=== PATIENT | male | born 1965 | race African-American/Black ===

== ENCOUNTER 2024-12-01 17:33 | Inpatient (IN) | payer OTHER, MEDICAID ==
[~2024-12-01] VITALS: Ht 188 cm; Wt 145.1 kg
[~2024-12-01 17:33] MED LIST: ETOMIDATE 2MG/ML 10ML VIAL IV ONE; LISI40TA21 PO; ROCURONIUM BROMIDE 10MG/ML VIAL 5ML IV ONE; SUCCINYLCHOLINE CHLORIDE 200MG/10ML IV ONE
[2024-12-01 18:05] LABS: BASOPHILS % 0.3 % (0.0-2.0); EOSINOPHILS % 0.0 % (0.0-5.0); HEMATOCRIT. 36.9 % (42.0-52.0); HEMOGLOBIN. 9.4 g/dL (14.0-18.0); LYMPHOCYTES % 14.4 % (20.0-50.0); MEAN PLATELET VOLUME 8.8 fl (7.4-10.4); MONOCYTES % 11.3 % (2.0-8.0); NEUTROPHILS % 74.0 % (40.0-76.0); PLATELET 169 x1000/uL (130-400); RED BLOOD CELL COUNT 5.10 mill/uL (4.7-6.1); RED CELL DISTRIBUTION WIDTH 21.3 % (11.6-14.6)
[2024-12-01 18:07] LABS: ADD RBC MORPHOLOGY YES
[2024-12-01 18:14] LABS: BG BASE EXCESS 2.9 mmol/L (-2.0-3.0); BG CARBOXYHEMOGLOBIN 1.2 % (0.5-1.5); BG DEOXYHEMOGLOBIN 1.1 % (0.0-5.0); BG FRACTION INSPIRED OXYGEN 30; BG HCO3 ACT 32.9 mmol/L (21.0-28.0); BG METHEMOGLOBIN 0.2 % (0.5-1.5); BG OXYGEN SATURATION 98.9 % (94.0-98.0); BG OXYHEMOGLOBIN 97.5 % (94.0-98.0); BG PCO2 88.1 mmHg (35.0-48.0); BG PH 7.190 (7.350-7.450); BG PO2 148.8 mmHg (83.0-108.0); BG SAMPLE SITE RIGHT RADIAL; BG TOTAL HEMOGLOBIN 10.4 g/dL (13.5-17.5); BG VENT MODE MASK - BIPAP; BG VENT RATE 20.0 set
[2024-12-01 18:20] LABS: CREATININE 2.5 mg/dL (0.6-1.3); UREA NITROGEN BLOOD 26 mg/dL (9-23)
[2024-12-01 18:22] LABS: ASPARTATE AMINOTRANSFERASE 123 IU/L (<34); BILIRUBIN DIRECT 0.2 mg/dL (<=3.0); BILIRUBIN TOTAL 0.6 mg/dL (0.1-1.0); PROTEIN TOTAL 7.8 g/dL (6.0-8.3)
[2024-12-01 18:27] LABS: PLATELET ESTIMATE NORMAL
[2024-12-01 18:33] VITALS: PULSE 97; RESP 22; O2SAT 96
[2024-12-01 18:41] LABS: TROPONIN I HIGH SENSITIVITY 300 ng/L (3.0-53)
[2024-12-01] MEDS: PROPOFOL 10MG/ML 100ML 100 ML IV STA (18:41)
[2024-12-01 18:59] LABS: ETHANOL BLOOD < 10 mg/dL (<10)
[2024-12-01] MEDS ORDERED: MIDAZOLAM 100MG/100ML PMX 100 ML IV PRN (19:00)
[2024-12-01] MEDS ORDERED: FENTANYL 2500MCG/250ML PMX 250 ML IV ONE (19:00)
[2024-12-01] MEDS: ROCURONIUM BROMIDE 10MG/ML VIAL 5ML IV ONE (19:05)
[2024-12-01] MEDS: MIDAZOLAM 100MG/100ML PMX 100 ML IV PRN (19:08)
[2024-12-01] MEDS: FENTANYL 2500MCG/250ML PMX 250 ML IV PRN (19:09)
[2024-12-01 19:28] LABS: INR 1.2
[2024-12-01 20:30] VITALS: PULSE 101; RESP 22; O2SAT 98
[2024-12-01] MEDS ORDERED: IPRATROPIUM/ALBUTEROL 0.5-3(2.5)MG/3ML NEB NEB PRN (21:30)
[2024-12-01] MEDS ORDERED: PIPERACILLIN/TAZO 3.375G/50ML 50 ML IV SCH (22:00)
[2024-12-01 22:05] VITALS: PULSE 106; RESP 22; O2SAT 97
[2024-12-01] MEDS: IOHEXOL-350 100 ML BOTTLE ONE (23:30)
[2024-12-02] VITALS (105 sets, daily range): BP systolic 95–173; BP diastolic 66–147; PULSE 74–162; RESP 18–25; TEMP 36.7–37.2; O2SAT 93–100
[2024-12-02] MEDS: DEXT 5%/0.45% NACL 1000ML 1,000 ML IV SCH (00:03)
[2024-12-02] MEDS: PANTOPRAZOLE SODIUM 40 MG/VIAL IV SCH ×2 (00:03→09:11)
[2024-12-02 01:25] LABS: BG BASE EXCESS 4.1 mmol/L (-2.0-3.0); BG CARBOXYHEMOGLOBIN 0.4 % (0.5-1.5); BG DEOXYHEMOGLOBIN 0.3 % (0.0-5.0); BG FRACTION INSPIRED OXYGEN 100; BG HCO3 ACT 27.6 mmol/L (21.0-28.0); BG METHEMOGLOBIN 0.0 % (0.5-1.5); BG OXYGEN SATURATION 99.7 % (94.0-98.0); BG OXYHEMOGLOBIN 99.3 % (94.0-98.0); BG PCO2 37.1 mmHg (35.0-48.0); BG PEEP (cmH2O) 5.0 cmH2O; BG PH 7.490 (7.350-7.450); BG PO2 235.2 mmHg (83.0-108.0); BG SAMPLE SITE RIGHT RADIAL; BG TIDAL VOLUME(mL) 500.0 mL; BG TOTAL HEMOGLOBIN 9.2 g/dL (13.5-17.5); BG VENT MODE VENT - AC; BG VENT RATE 22.0 set
[2024-12-02] MEDS ORDERED: PROPOFOL 10MG/ML 100ML 100 ML IV PRN (03:00)
[2024-12-02] MEDS: VANCOMYCIN 2GM PMX (XELLIA) 400 ML IV SCH (03:37)
[2024-12-02] MEDS: FUROSEMIDE 100MG/10ML VIAL IVP NR (04:12)
[2024-12-02] MEDS: AMLODIPINE 10MG TABLET PO NR (04:16)
[2024-12-02 06:08] LABS: HEMATOCRIT. 29.5 % (42.0-52.0); HEMOGLOBIN. 8.0 g/dL (14.0-18.0); MEAN PLATELET VOLUME 8.4 fl (7.4-10.4); RED BLOOD CELL COUNT 4.30 mill/uL (4.7-6.1); RED CELL DISTRIBUTION WIDTH 20.4 % (11.6-14.6)
[2024-12-02 06:23] LABS: FOLIC ACID (FOLATE) SERUM 13.43 ng/mL (>5.38); VITAMIN B12 SERUM 898 pg/mL (211-911)
[2024-12-02 06:29] LABS: TRIGLYCERIDE 100 mg/dL (0-150)
[2024-12-02 06:30] LABS: CREATININE 2.6 mg/dL (0.6-1.3); UREA NITROGEN BLOOD 41 mg/dL (9-23)
[2024-12-02 06:31] LABS: ASPARTATE AMINOTRANSFERASE 127 IU/L (<34); CREATINE KINASE MB FRACTION 8.7 ng/mL (0.5-3.6); LDL CHOLESTEROL 98 mg/dL (5-100)
[2024-12-02 06:32] LABS: BILIRUBIN DIRECT 0.2 mg/dL (<=3.0)
[2024-12-02 06:33] LABS: BILIRUBIN TOTAL 0.7 mg/dL (0.1-1.0); PROTEIN TOTAL 6.3 g/dL (6.0-8.3)
[2024-12-02 06:35] LABS: T4 FREE 0.89 ng/dL (0.89-1.76)
[2024-12-02 06:37] LABS: TROPONIN I HIGH SENSITIVITY 2533 ng/L (3.0-53)
[2024-12-02] MEDS: PIPERACILLIN/TAZO 3.375G/50ML 50 ML IV SCH (06:41)
[2024-12-02 08:54] LABS: BG BASE EXCESS 8.9 mmol/L (-2.0-3.0); BG CARBOXYHEMOGLOBIN 0.3 % (0.5-1.5); BG DEOXYHEMOGLOBIN 4.1 % (0.0-5.0); BG FRACTION INSPIRED OXYGEN 50; BG HCO3 ACT 34.1 mmol/L (21.0-28.0); BG METHEMOGLOBIN 0.3 % (0.5-1.5); BG OXYGEN SATURATION 95.9 % (94.0-98.0); BG OXYHEMOGLOBIN 95.3 % (94.0-98.0); BG PCO2 50.9 mmHg (35.0-48.0); BG PEEP (cmH2O) 5.0 cmH2O; BG PH 7.444 (7.350-7.450); BG PO2 79.4 mmHg (83.0-108.0); BG SAMPLE SITE RIGHT RADIAL; BG TIDAL VOLUME(mL) 500.0 mL; BG TOTAL HEMOGLOBIN 9.7 g/dL (13.5-17.5); BG VENT MODE VENT - AC; BG VENT RATE 22.0 set
[2024-12-02] MEDS ORDERED: FUROSEMIDE 40MG/4ML VIAL IVP SCH (09:00)
[2024-12-02] MEDS ORDERED: ENOXAPARIN 40MG/0.4ML SYR SUBCUT SCH (09:00)
[2024-12-02] MEDS ORDERED: PANTOPRAZOLE SODIUM 40 MG/VIAL IV SCH (09:00)
[2024-12-02 09:01] LABS: PLATELET 277 x1000/uL (130-400)
[2024-12-02 09:03] LABS: BAND% 8.0 % (1.0-6.0); LYMPHOCYTES % MANUAL 13.0 % (20.0-50.0); MONOCYTES % MANUAL 8.0 % (2.0-8.0); NEUTROPHILS % MANUAL 71.0 % (45.0-75.0); NUCLEATED RED BLOOD CELLS 1 /100 WBC; PLATELET ESTIMATE NORMAL
[2024-12-02] MEDS: AMLODIPINE 10MG TABLET PO SCH (09:11)
[2024-12-02] MEDS: MULTIVITAMINS,THER W-MINERALS TABLET PO SCH (09:12)
[2024-12-02] MEDS: ENOXAPARIN 150MG/ML SYR SUBCUT SCH (09:13)
[2024-12-02] MEDS: FERROUS SULFATE 325MG TABLET PO SCH (11:58)
[2024-12-02 12:30] LABS: CLARITY URINE CLEAR (CLEAR); COLOR URINE YELLOW (YELLOW); GLUCOSE URINE NEGATIVE (NEGATIVE); KETONES URINE NEGATIVE (NEGATIVE); LEUKOCYTE ESTERASE URINE NEGATIVE (NEGATIVE); NITRITE URINE NEGATIVE (NEGATIVE); OCCULT BLOOD URINE NEGATIVE (NEGATIVE); PH URINE 5.0 (4.5-8.0); PROTEIN URINE 2+ (NEGATIVE); SPECIFIC GRAVITY URINE 1.016 (1.005-1.030); UROBILINOGEN URINE 0.2 E.U./dL (0.2-1.0)
[2024-12-02 12:48] LABS: HYALINE CASTS URINE 0-5 /lpf
[2024-12-02 12:49] LABS: BACTERIA URINE 1+; RBC URINE NONE SEEN /hpf (0-2); WBC URINE 0-2 /hpf (0-2); YEAST URINE NONE SEEN
[2024-12-02 12:50] LABS: SQUAMOUS EPITHELIAL CELL URINE FEW /lpf (RARE/1+)
[2024-12-02 13:21] LABS: SODIUM URINE RANDOM 99.0 mEq/L
[2024-12-02 13:28] LABS: *AMPHETAMINES SCREEN URINE NEGATIVE (NEGATIVE); *BARBITURATES SCREEN URINE NEGATIVE (NEGATIVE); *BENZODIAZEPINES SCREEN URINE PRESUMPTIVE POSITIVE (NEGATIVE); *COCAINE SCREEN URINE NEGATIVE (NEGATIVE); CANNABINOID URINE SCREEN NEGATIVE (NEGATIVE); METHADONE URINE SCREEN NEGATIVE (NEGATIVE); OPIATES URINE SCREEN NEGATIVE (NEGATIVE); PHENCYCLIDINE URINE SCREEN NEGATIVE (NEGATIVE)
[2024-12-02 13:29] LABS: CREATININE URINE RANDOM 85.2 mg/dL; ECSTASY MDMA SCREEN URINE NEGATIVE (NEGATIVE)
[2024-12-02] MEDS: CLONIDINE 0.1MG TABLET PO PRN (16:07)
[2024-12-02] MEDS: INSULIN LISPRO 100 UNITS/ML SUBCUT SCH (17:00)
[2024-12-02] MEDS: BLOOD SUGAR DIAGNOSTIC STRIP TEST SCH ×2 (17:26)
[2024-12-02 19:29] LABS: PHOSPHORUS 2.2 mg/dL (2.5-4.9)
[2024-12-02 19:35] LABS: TROPONIN I HIGH SENSITIVITY 2306 ng/L (3.0-53)
[2024-12-03] VITALS (97 sets, daily range): BP systolic 109–150; BP diastolic 64–106; PULSE 78–94; RESP 13–24; TEMP 36.8–37; O2SAT 94–100
[2024-12-03 01:25] LABS: CREATINE KINASE MB FRACTION 3.2 ng/mL (0.5-3.6)
[2024-12-03 01:44] LABS: TROPONIN I HIGH SENSITIVITY 1983.0 ng/L (3.0-53)
[2024-12-03 06:12] LABS: BASOPHILS % 0.4 % (0.0-2.0); EOSINOPHILS % 2.6 % (0.0-5.0); HEMATOCRIT. 29.6 % (42.0-52.0); HEMOGLOBIN. 8.1 g/dL (14.0-18.0); LYMPHOCYTES % 9.7 % (20.0-50.0); MEAN PLATELET VOLUME 8.8 fl (7.4-10.4); MONOCYTES % 12.4 % (2.0-8.0); NEUTROPHILS % 74.9 % (40.0-76.0); PLATELET 253 x1000/uL (130-400); RED BLOOD CELL COUNT 4.34 mill/uL (4.7-6.1); RED CELL DISTRIBUTION WIDTH 20.5 % (11.6-14.6)
[2024-12-03 06:16] LABS: CREATININE 2.1 mg/dL (0.6-1.3); TRIGLYCERIDE 113 mg/dL (0-150); UREA NITROGEN BLOOD 38 mg/dL (9-23)
[2024-12-03 06:18] LABS: PHOSPHORUS 3.0 mg/dL (2.5-4.9)
[2024-12-03 08:09] LABS: BG BASE EXCESS 6.1 mmol/L (-2.0-3.0); BG CARBOXYHEMOGLOBIN 1.0 % (0.5-1.5); BG DEOXYHEMOGLOBIN 2.9 % (0.0-5.0); BG FRACTION INSPIRED OXYGEN 40; BG HCO3 ACT 31.1 mmol/L (21.0-28.0); BG METHEMOGLOBIN 0.0 % (0.5-1.5); BG OXYGEN SATURATION 97.1 % (94.0-98.0); BG OXYHEMOGLOBIN 96.1 % (94.0-98.0); BG PCO2 47.2 mmHg (35.0-48.0); BG PEEP (cmH2O) 5.0 cmH2O; BG PH 7.436 (7.350-7.450); BG PO2 91.4 mmHg (83.0-108.0); BG SAMPLE SITE RIGHT RADIAL; BG TIDAL VOLUME(mL) 500.0 mL; BG TOTAL HEMOGLOBIN 9.1 g/dL (13.5-17.5); BG VENT MODE VENT - AC; BG VENT RATE 18.0 set
[2024-12-03] MEDS: SODIUM CHLORIDE 0.9% 1,000 ML IV SCH (08:25)
[2024-12-03] MEDS: VANCOMYCIN 1.5GM PMX (XELLIA) 300 ML IV SCH (13:26)
[2024-12-03] MEDS: ASPIRIN 81MG TABLET PO SCH (19:46)
[2024-12-03] MEDS: ATORVASTATIN CALCIUM 40MG TABLET PO SCH (21:46)
[2024-12-04] VITALS (104 sets, daily range): BP systolic 111–181; BP diastolic 69–128; PULSE 76–110; RESP 12–32; TEMP 36.9–37.7; O2SAT 89–100
[2024-12-04 05:37] LABS: UREA NITROGEN BLOOD 28 mg/dL (9-23)
[2024-12-04 05:38] LABS: ASPARTATE AMINOTRANSFERASE 39 IU/L (<34)
[2024-12-04 05:39] LABS: BILIRUBIN DIRECT 0.2 mg/dL (<=3.0); BILIRUBIN TOTAL 0.6 mg/dL (0.1-1.0); PHOSPHORUS 2.9 mg/dL (2.5-4.9); PROTEIN TOTAL 6.0 g/dL (6.0-8.3)
[2024-12-04 05:50] LABS: CREATININE 1.4 mg/dL (0.6-1.3)
[2024-12-04 07:13] LABS: BASOPHILS % 0.7 % (0.0-2.0); EOSINOPHILS % 3.7 % (0.0-5.0); HEMATOCRIT. 29.0 % (42.0-52.0); HEMOGLOBIN. 7.8 g/dL (14.0-18.0); LYMPHOCYTES % 13.9 % (20.0-50.0); MEAN PLATELET VOLUME 8.9 fl (7.4-10.4); MONOCYTES % 12.5 % (2.0-8.0); NEUTROPHILS % 69.2 % (40.0-76.0); PLATELET 247 x1000/uL (130-400); RED BLOOD CELL COUNT 4.18 mill/uL (4.7-6.1); RED CELL DISTRIBUTION WIDTH 21.1 % (11.6-14.6)
[2024-12-04] MEDS: SODIUM CHLORIDE 0.45% 1,000 ML IV SCH (15:34)
[2024-12-04] MEDS: SUCRALFATE 1G TABLET PO SCH (18:34)
[2024-12-04] MEDS: HYDRALAZINE 20MG/ML VIAL IV PRN (18:35)
[2024-12-04] MEDS: DEXTROSE 50% WATER 50ML SYRINGE IV PRN (20:14)
[2024-12-05] VITALS (92 sets, daily range): BP systolic 123–180; BP diastolic 60–139; PULSE 72–106; RESP 11–30; TEMP 37.1–37.9; O2SAT 93–98
[2024-12-05 05:49] LABS: BASOPHILS % 0.2 % (0.0-2.0); EOSINOPHILS % 2.5 % (0.0-5.0); HEMATOCRIT. 29.6 % (42.0-52.0); HEMOGLOBIN. 8.0 g/dL (14.0-18.0); LYMPHOCYTES % 11.1 % (20.0-50.0); MEAN PLATELET VOLUME 8.8 fl (7.4-10.4); MONOCYTES % 14.4 % (2.0-8.0); NEUTROPHILS % 71.8 % (40.0-76.0); PLATELET 257 x1000/uL (130-400); RED BLOOD CELL COUNT 4.24 mill/uL (4.7-6.1); RED CELL DISTRIBUTION WIDTH 21.2 % (11.6-14.6)
[2024-12-05 06:05] LABS: CREATININE 1.2 mg/dL (0.6-1.3); UREA NITROGEN BLOOD 18 mg/dL (9-23)
[2024-12-05 06:07] LABS: PHOSPHORUS 2.8 mg/dL (2.5-4.9)
[2024-12-05] MEDS ORDERED: AMLODIPINE 5MG TABLET PO SCH (10:30)
[2024-12-05 10:34] LABS: BG BASE EXCESS 7.3 mmol/L (-2.0-3.0); BG CARBOXYHEMOGLOBIN 1.7 % (0.5-1.5); BG DEOXYHEMOGLOBIN 4.3 % (0.0-5.0); BG FRACTION INSPIRED OXYGEN 40; BG HCO3 ACT 35.2 mmol/L (21.0-28.0); BG METHEMOGLOBIN 0.2 % (0.5-1.5); BG OXYGEN SATURATION 95.6 % (94.0-98.0); BG OXYHEMOGLOBIN 93.8 % (94.0-98.0); BG PCO2 73.4 mmHg (35.0-48.0); BG PEEP (cmH2O) 5.0 cmH2O; BG PH 7.299 (7.350-7.450); BG PO2 82.3 mmHg (83.0-108.0); BG SAMPLE SITE RIGHT RADIAL; BG TIDAL VOLUME(mL) 500.0 mL; BG TOTAL HEMOGLOBIN 9.1 g/dL (13.5-17.5); BG TOTAL RESPIRATORY RATE 13 b/min; BG VENT MODE VENT - SIMV; BG VENT RATE 12.0 set
[2024-12-05] MEDS: DEXT 5%/0.2% NACL 1,000 ML IV SCH (10:39)
[2024-12-05 16:12] LABS: TROPONIN I HIGH SENSITIVITY 611 ng/L (3.0-53)
[2024-12-05] MEDS: DOCUSATE SODIUM SUGAR FREE 100MG/10ML UDC NG SCH (18:59)
[2024-12-05 19:08] LABS: TROPONIN I HIGH SENSITIVITY 548 ng/L (3.0-53)
[2024-12-05] MEDS: DEXMEDETOMIDINE 250 ML IV PRN (20:45)
[2024-12-05] MEDS: CLONIDINE 0.1MG TABLET PO SCH (21:12)
[2024-12-06] VITALS (106 sets, daily range): BP systolic 101–181; BP diastolic 66–127; PULSE 58–85; RESP 0–22; TEMP 36.3–37.6; O2SAT 93–100
[2024-12-06 05:58] LABS: BASOPHILS % 0.5 % (0.0-2.0); EOSINOPHILS % 4.2 % (0.0-5.0); HEMATOCRIT. 28.8 % (42.0-52.0); HEMOGLOBIN. 7.8 g/dL (14.0-18.0); LYMPHOCYTES % 12.3 % (20.0-50.0); MEAN PLATELET VOLUME 8.8 fl (7.4-10.4); MONOCYTES % 14.4 % (2.0-8.0); NEUTROPHILS % 68.6 % (40.0-76.0); PLATELET 261 x1000/uL (130-400); RED BLOOD CELL COUNT 4.13 mill/uL (4.7-6.1); RED CELL DISTRIBUTION WIDTH 21.2 % (11.6-14.6)
[2024-12-06 06:26] LABS: CREATININE 1.1 mg/dL (0.6-1.3)
[2024-12-06 06:28] LABS: UREA NITROGEN BLOOD 15 mg/dL (9-23)
[2024-12-06 06:29] LABS: TROPONIN I HIGH SENSITIVITY 444 ng/L (3.0-53)
[2024-12-06 06:30] LABS: PHOSPHORUS 1.6 mg/dL (2.5-4.9)
[2024-12-06] MEDS: POTASSIUM PHOSPHATE 20 MMOL in DEXT 5% WATER 243.3333 ML IV SCH (08:52)
[2024-12-06] MEDS: AMLODIPINE 5MG TABLET PO SCH (08:53)
[2024-12-06] MEDS ORDERED: POTASSIUM PHOSPHATE 15 MMOL in DEXT 5% WATER 245 ML IV NR (11:00)
[2024-12-06 11:58] LABS: BG BASE EXCESS 7.8 mmol/L (-2.0-3.0); BG CARBOXYHEMOGLOBIN 1.8 % (0.5-1.5); BG DEOXYHEMOGLOBIN 3.4 % (0.0-5.0); BG FRACTION INSPIRED OXYGEN 40; BG HCO3 ACT 34.2 mmol/L (21.0-28.0); BG METHEMOGLOBIN 0.2 % (0.5-1.5); BG OXYGEN SATURATION 96.5 % (94.0-98.0); BG OXYHEMOGLOBIN 94.6 % (94.0-98.0); BG PCO2 59.2 mmHg (35.0-48.0); BG PEEP (cmH2O) 5.0 cmH2O; BG PH 7.380 (7.350-7.450); BG PO2 83.0 mmHg (83.0-108.0); BG SAMPLE SITE RIGHT RADIAL; BG TIDAL VOLUME(mL) 500.0 mL; BG TOTAL HEMOGLOBIN 9.4 g/dL (13.5-17.5); BG VENT MODE VENT - SIMV; BG VENT RATE 15.0 set
[2024-12-06] MEDS ORDERED: HEPARIN 1000 UNITS/ML 10ML ONE (12:28)
[2024-12-06] MEDS ORDERED: LIDOCAINE HCL 1% 20ML VIAL ONE (12:29)
[2024-12-06] MEDS ORDERED: IODIXANOL 320MG/ML 100 ML BOTTLE IV ONE (12:29)
[2024-12-06] MEDS ORDERED: VERAPAMIL HCL 2.5 MG/1 ML 2ML VIAL IV ONE (12:34)
[2024-12-06] MEDS ORDERED: DIPHENHYDRAMINE 50MG/ML VIAL ONE (13:12)
[2024-12-06] MEDS ORDERED: MIDAZOLAM HCL 2 MG/2 ML VIAL ONE (13:13)
[2024-12-06] MEDS ORDERED: FENTANYL CITRATE/PF 50MCG/ML 2ML VIAL ONE (13:13)
[2024-12-06 13:21] LABS: TROPONIN I HIGH SENSITIVITY 330 ng/L (3.0-53)
[2024-12-06] MEDS ORDERED: HYDRALAZINE 20MG/ML VIAL ONE (13:21)
[2024-12-06] MEDS ORDERED: ACETAMINOPHEN 325MG TABLET PO PRN (14:00)
[2024-12-06] MEDS ORDERED: ATROPINE SULFATE 1MG/10ML SYR IV PRN (14:00)
[2024-12-06] MEDS: DOCUSATE SODIUM SUGAR FREE 100MG/10ML UDC NG SCH (16:04)
[2024-12-06 19:07] LABS: BG BASE EXCESS 8.2 mmol/L (-2.0-3.0); BG CARBOXYHEMOGLOBIN 1.1 % (0.5-1.5); BG DEOXYHEMOGLOBIN 2.6 % (0.0-5.0); BG FRACTION INSPIRED OXYGEN 40; BG HCO3 ACT 35.0 mmol/L (21.0-28.0); BG METHEMOGLOBIN 0.2 % (0.5-1.5); BG OXYGEN SATURATION 97.4 % (94.0-98.0); BG OXYHEMOGLOBIN 96.1 % (94.0-98.0); BG PCO2 63.0 mmHg (35.0-48.0); BG PEEP (cmH2O) 8.0 cmH2O; BG PH 7.363 (7.350-7.450); BG PO2 96.5 mmHg (83.0-108.0); BG SAMPLE SITE RIGHT RADIAL; BG TOTAL HEMOGLOBIN 9.2 g/dL (13.5-17.5); BG VENT MODE VENT - CPAP
[2024-12-06 21:09] LABS: CREATININE 1.0 mg/dL (0.6-1.3); UREA NITROGEN BLOOD 16 mg/dL (9-23)
[2024-12-06 21:21] LABS: TROPONIN I HIGH SENSITIVITY 278 ng/L (3.0-53)
[2024-12-06] MEDS ORDERED: NALOXONE HCL 0.4MG/ML VIAL IV PRN (22:00)
[2024-12-07] VITALS (72 sets, daily range): BP systolic 127–227; BP diastolic 66–111; PULSE 79–115; RESP 6–29; TEMP 36.8–37.1; O2SAT 90–99
[2024-12-07] MEDS: MORPHINE SULFATE 4 MG/ML INJ (FOR IV/IM USE) IV PRN (03:36)
[2024-12-07 06:16] LABS: BASOPHILS % 0.6 % (0.0-2.0); EOSINOPHILS % 4.8 % (0.0-5.0); HEMATOCRIT. 30.5 % (42.0-52.0); HEMOGLOBIN. 8.3 g/dL (14.0-18.0); LYMPHOCYTES % 9.0 % (20.0-50.0); MEAN PLATELET VOLUME 8.9 fl (7.4-10.4); MONOCYTES % 12.2 % (2.0-8.0); NEUTROPHILS % 73.4 % (40.0-76.0); PLATELET 281 x1000/uL (130-400); RED BLOOD CELL COUNT 4.44 mill/uL (4.7-6.1); RED CELL DISTRIBUTION WIDTH 21.5 % (11.6-14.6)
[2024-12-07 06:27] LABS: CREATININE 1.0 mg/dL (0.6-1.3)
[2024-12-07 06:28] LABS: UREA NITROGEN BLOOD 14 mg/dL (9-23)
[2024-12-07 06:30] LABS: PHOSPHORUS 2.0 mg/dL (2.5-4.9)
[2024-12-07] MEDS: FUROSEMIDE 40MG/4ML VIAL IVP NR (09:24)
[2024-12-07] MEDS: POTASSIUM PHOSPHATE 15 MMOL in DEXT 5% WATER 245 ML IV SCH (09:29)
[2024-12-07] MEDS: LACTULOSE ENEMA 1,000ML BOTTLE PR NR (13:44)
[2024-12-07] MEDS: MELATONIN 3MG TABLET PO SCH (21:15)
[2024-12-08] VITALS (24 sets, daily range): BP systolic 149–219; BP diastolic 80–111; PULSE 89–121; RESP 18–30; TEMP 36.6–37; O2SAT 85–99
[2024-12-08 09:14] LABS: BASOPHILS % 0.7 % (0.0-2.0); EOSINOPHILS % 4.3 % (0.0-5.0); HEMATOCRIT. 30.1 % (42.0-52.0); HEMOGLOBIN. 8.2 g/dL (14.0-18.0); LYMPHOCYTES % 10.4 % (20.0-50.0); MEAN PLATELET VOLUME 8.8 fl (7.4-10.4); MONOCYTES % 13.3 % (2.0-8.0); NEUTROPHILS % 71.3 % (40.0-76.0); PLATELET 261 x1000/uL (130-400); RED BLOOD CELL COUNT 4.44 mill/uL (4.7-6.1); RED CELL DISTRIBUTION WIDTH 21.2 % (11.6-14.6)
[2024-12-08 09:32] LABS: CREATININE 1.1 mg/dL (0.6-1.3); UREA NITROGEN BLOOD 13 mg/dL (9-23)
[2024-12-08 09:34] LABS: PHOSPHORUS 2.4 mg/dL (2.5-4.9)
[2024-12-08] MEDS: NIFEDIPINE XL 30MG TAB PO SCH (11:29)
[2024-12-08] MEDS: POTASSIUM PHOSPHATE 15 MMOL in DEXT 5% WATER 245 ML IV ONE (11:37)
[2024-12-08] MEDS: LABETALOL 5MG/ML 4ML INJ IV NR (12:27)
[2024-12-08] MEDS: MAGNESIUM 4 G PREMIX 100 ML IV ONE (12:40)
[2024-12-08 12:56] LABS: BG BASE EXCESS 9.0 mmol/L (-2.0-3.0); BG CARBOXYHEMOGLOBIN 0.5 % (0.5-1.5); BG DEOXYHEMOGLOBIN 3.3 % (0.0-5.0); BG FLOW(L/min) 6.00 L/min; BG FRACTION INSPIRED OXYGEN 44; BG HCO3 ACT 34.3 mmol/L (21.0-28.0); BG METHEMOGLOBIN 0.3 % (0.5-1.5); BG OXYGEN SATURATION 96.7 % (94.0-98.0); BG OXYHEMOGLOBIN 95.9 % (94.0-98.0); BG PCO2 51.0 mmHg (35.0-48.0); BG PH 7.445 (7.350-7.450); BG PO2 77.4 mmHg (83.0-108.0); BG SAMPLE SITE RIGHT RADIAL; BG TOTAL HEMOGLOBIN 9.4 g/dL (13.5-17.5); BG VENT MODE NASAL CANNULA
[2024-12-08] MEDS: HYDRALAZINE HCL 25MG TABLET PO SCH (13:54)
[2024-12-08] MEDS: NIFEDIPINE XL 60MG TAB PO SCH (17:17)
[2024-12-08 17:21] LABS: BG BASE EXCESS 9.3 mmol/L (-2.0-3.0); BG CARBOXYHEMOGLOBIN 1.0 % (0.5-1.5); BG DEOXYHEMOGLOBIN 24.1 % (0.0-5.0); BG FRACTION INSPIRED OXYGEN 21; BG HCO3 ACT 33.9 mmol/L (21.0-28.0); BG METHEMOGLOBIN 0.3 % (0.5-1.5); BG OXYGEN SATURATION 75.6 % (94.0-98.0); BG OXYHEMOGLOBIN 74.6 % (94.0-98.0); BG PCO2 47.0 mmHg (35.0-48.0); BG PH 7.476 (7.350-7.450); BG PO2 38.3 mmHg (83.0-108.0); BG SAMPLE SITE RIGHT RADIAL; BG TOTAL HEMOGLOBIN 9.9 g/dL (13.5-17.5); BG VENT MODE ROOM AIR
[2024-12-08] MEDS: CLONIDINE 0.1MG TABLET PO SCH (18:37)
[2024-12-09] VITALS (8 sets, daily range): BP systolic 150–198; BP diastolic 78–104; PULSE 105–110; RESP 21–32; TEMP 36.7–37.6; O2SAT 90–98
[2024-12-09] MEDS: NIFEDIPINE XL 60MG TAB PO SCH (09:57)
[2024-12-09] MEDS: FUROSEMIDE 40MG/4ML VIAL IVP NR (09:57)
[2024-12-09 10:27] LABS: MEAN PLATELET VOLUME 8.6 fl (7.4-10.4); PLATELET 284 x1000/uL (130-400); RED BLOOD CELL COUNT 5.11 mill/uL (4.7-6.1); RED CELL DISTRIBUTION WIDTH 21.3 % (11.6-14.6)
[2024-12-09 10:37] LABS: CREATININE 1.0 mg/dL (0.6-1.3)
[2024-12-09 10:38] LABS: UREA NITROGEN BLOOD 11 mg/dL (9-23)
[2024-12-09 10:40] LABS: PHOSPHORUS 2.3 mg/dL (2.5-4.9)
[2024-12-09 11:00] LABS: HEMATOCRIT. 34.8 % (42.0-52.0); HEMOGLOBIN. 9.8 g/dL (14.0-18.0)
[2024-12-09 13:31] LABS: BAND% 2.0 % (1.0-6.0); EOSINOPHILS % MANUAL 1.0 % (0.0-5.0); LYMPHOCYTES % MANUAL 5.0 % (20.0-50.0); MONOCYTES % MANUAL 7.0 % (2.0-8.0); NEUTROPHILS % MANUAL 85.0 % (45.0-75.0); PLATELET ESTIMATE NORMAL
[2024-12-09 13:56] LABS: BG BASE EXCESS 9.0 mmol/L (-2.0-3.0); BG CARBOXYHEMOGLOBIN 0.7 % (0.5-1.5); BG DEOXYHEMOGLOBIN 10.4 % (0.0-5.0); BG FLOW(L/min) 4.00 L/min; BG FRACTION INSPIRED OXYGEN 36; BG HCO3 ACT 33.7 mmol/L (21.0-28.0); BG METHEMOGLOBIN 0.0 % (0.5-1.5); BG OXYGEN SATURATION 89.5 % (94.0-98.0); BG OXYHEMOGLOBIN 88.9 % (94.0-98.0); BG PCO2 47.4 mmHg (35.0-48.0); BG PH 7.470 (7.350-7.450); BG PO2 54.7 mmHg (83.0-108.0); BG SAMPLE SITE RIGHT RADIAL; BG TOTAL HEMOGLOBIN 10.3 g/dL (13.5-17.5); BG VENT MODE NASAL CANNULA
[2024-12-09] MEDS: CLONIDINE 0.2MG TABLET PO SCH (16:47)
[2024-12-09] MEDS: POTASSIUM PHOSPHATE 15 MMOL in DEXT 5% WATER 245 ML IV NR (16:50)
[2024-12-10] VITALS (9 sets, daily range): BP systolic 114–143; BP diastolic 77–91; PULSE 85–100; RESP 16–25; TEMP 36.4–37.5; O2SAT 91–97
[2024-12-10 07:26] LABS: CREATININE 1.3 mg/dL (0.6-1.3)
[2024-12-10 07:27] LABS: UREA NITROGEN BLOOD 10 mg/dL (9-23)
[2024-12-10 07:29] LABS: PHOSPHORUS 3.7 mg/dL (2.5-4.9)
[2024-12-10 10:51] LABS: BASOPHILS % 1.0 % (0.0-2.0); EOSINOPHILS % 3.8 % (0.0-5.0); HEMATOCRIT. 31.8 % (42.0-52.0); HEMOGLOBIN. 8.9 g/dL (14.0-18.0); LYMPHOCYTES % 11.8 % (20.0-50.0); MEAN PLATELET VOLUME 8.3 fl (7.4-10.4); MONOCYTES % 9.8 % (2.0-8.0); NEUTROPHILS % 73.6 % (40.0-76.0); PLATELET 267 x1000/uL (130-400); RED BLOOD CELL COUNT 4.70 mill/uL (4.7-6.1); RED CELL DISTRIBUTION WIDTH 21.1 % (11.6-14.6)
[2024-12-10] MEDS: FAMOTIDINE 20MG/2ML VIAL IV SCH (11:00)
[2024-12-10] MEDS: BUDESONIDE 0.5MG/2ML NEB HHN SCH (13:33)
[2024-12-10] MEDS: FUROSEMIDE 40MG/4ML VIAL IVP NR (14:19)
[2024-12-10] MEDS: CARVEDILOL 3.125 MG TABLET PO SCH (22:23)
[2024-12-10] MEDS: ENOXAPARIN 40MG/0.4ML SYR SUBCUT SCH (22:25)
[2024-12-11] VITALS (7 sets, daily range): BP systolic 127–157; BP diastolic 78–95; PULSE 92–102; RESP 16–22; TEMP 36.7–37.1; O2SAT 92–98
[2024-12-11] MEDS: EMPAGLIFLOZIN 10MG TABLET PO SCH (09:56)
[2024-12-11] MEDS: LOSARTAN 50 MG TABLET PO SCH (09:56)
[2024-12-11] MEDS: FUROSEMIDE 40MG TABLET PO SCH (12:12)
[2024-12-12] VITALS (10 sets, daily range): BP systolic 116–155; BP diastolic 72–95; PULSE 75–117; RESP 17–28; TEMP 36.6–38.8; O2SAT 90–98
[2024-12-12] MEDS: DOCUSATE SODIUM 100MG CAPSULE PO PRN (08:24)
[2024-12-12] MEDS: METOPROLOL TARTRATE 50MG TABLET PO SCH (10:01)
[2024-12-12 11:59] LABS: BG BASE EXCESS 7.2 mmol/L (-2.0-3.0); BG CARBOXYHEMOGLOBIN 1.7 % (0.5-1.5); BG DEOXYHEMOGLOBIN 9.8 % (0.0-5.0); BG FLOW(L/min) 5.00 L/min; BG FRACTION INSPIRED OXYGEN 40; BG HCO3 ACT 33.2 mmol/L (21.0-28.0); BG METHEMOGLOBIN 0.2 % (0.5-1.5); BG OXYGEN SATURATION 90.0 % (94.0-98.0); BG OXYHEMOGLOBIN 88.3 % (94.0-98.0); BG PCO2 55.0 mmHg (35.0-48.0); BG PH 7.399 (7.350-7.450); BG PO2 57.8 mmHg (83.0-108.0); BG SAMPLE SITE LEFT RADIAL; BG TOTAL HEMOGLOBIN 10.3 g/dL (13.5-17.5); BG VENT MODE NASAL CANNULA
[2024-12-12] MEDS: ACETAMINOPHEN 325MG TABLET PO PRN (14:04)
[2024-12-12] MEDS: CEFEPIME 2GM/100ML 100 ML IV SCH (16:25)
[2024-12-12] MEDS: SODIUM CHLORIDE 0.9% 1,000 ML IV ONE (21:38)
[2024-12-12 22:41] LABS: PLATELET 231 x1000/uL (130-400); RED BLOOD CELL COUNT 4.88 mill/uL (4.7-6.1); RED CELL DISTRIBUTION WIDTH 22.3 % (11.6-14.6)
[2024-12-12 22:53] LABS: UREA NITROGEN BLOOD 27.0 mg/dL (9-23)
[2024-12-12 23:03] LABS: CREATININE 2.2 mg/dL (0.6-1.3)
[2024-12-13] VITALS (35 sets, daily range): BP systolic 68–133; BP diastolic 49–76; PULSE 74–110; RESP 14–28; TEMP 36.2–37.8; O2SAT 92–98
[2024-12-13 05:02] LABS: CLARITY URINE TURBID (CLEAR); COLOR URINE DARK YELLOW (YELLOW); GLUCOSE URINE 2+ (NEGATIVE); KETONES URINE TRACE (NEGATIVE); LEUKOCYTE ESTERASE URINE TRACE (NEGATIVE); NITRITE URINE POSITIVE (NEGATIVE); OCCULT BLOOD URINE 1+ (NEGATIVE); PH URINE 5.0 (4.5-8.0); PROTEIN URINE 2+ (NEGATIVE); SPECIFIC GRAVITY URINE 1.024 (1.005-1.030); UROBILINOGEN URINE 1.0 E.U./dL (0.2-1.0)
[2024-12-13 05:33] LABS: WBC URINE 0-2 /hpf (0-2)
[2024-12-13 05:35] LABS: RBC URINE 0-2 /hpf (0-2)
[2024-12-13 05:36] LABS: SQUAMOUS EPITHELIAL CELL URINE FEW /lpf (RARE/1+)
[2024-12-13 05:38] LABS: AMORPHOUS SEDIMENT URINE 1+ /lpf; BACTERIA URINE 1+
[2024-12-13] MEDS: SODIUM CHLORIDE 0.9% 1,000 ML IV SCH (08:23)
[2024-12-13] MEDS ORDERED: AZITHROMYCIN 500MG/250ML 250 ML IV SCH (08:30)
[2024-12-13] MEDS: AZITHROMYCIN 500MG/250ML 250 ML IV SCH (10:39)
[2024-12-13 12:23] LABS: BG BASE EXCESS 4.3 mmol/L (-2.0-3.0); BG CARBOXYHEMOGLOBIN 1.3 % (0.5-1.5); BG DEOXYHEMOGLOBIN 5.5 % (0.0-5.0); BG FRACTION INSPIRED OXYGEN 40; BG HCO3 ACT 30.1 mmol/L (21.0-28.0); BG METHEMOGLOBIN 0.1 % (0.5-1.5); BG OXYGEN SATURATION 94.4 % (94.0-98.0); BG OXYHEMOGLOBIN 93.1 % (94.0-98.0); BG PCO2 51.3 mmHg (35.0-48.0); BG PH 7.386 (7.350-7.450); BG PO2 70.4 mmHg (83.0-108.0); BG SAMPLE SITE LEFT RADIAL; BG TOTAL HEMOGLOBIN 9.5 g/dL (13.5-17.5); BG TOTAL RESPIRATORY RATE 27 b/min; BG VENT MODE MASK - BIPAP; BG VENT RATE 18.0 set
[2024-12-13] MEDS ORDERED: NOREPINEPHRINE 8MG/250ML PMX 242 ML IV PRN (14:00)
[2024-12-13] MEDS: SODIUM CHLORIDE 0.9% 3,000 ML IV ONE (14:09)
[2024-12-13] MEDS: LEVOFLOXACIN 500MG TABLET PO NR (14:15)
[2024-12-13 14:26] LABS: BG BASE EXCESS 3.9 mmol/L (-2.0-3.0); BG CARBOXYHEMOGLOBIN 1.1 % (0.5-1.5); BG DEOXYHEMOGLOBIN 1.4 % (0.0-5.0); BG FRACTION INSPIRED OXYGEN 60; BG HCO3 ACT 30.3 mmol/L (21.0-28.0); BG METHEMOGLOBIN 0.1 % (0.5-1.5); BG OXYGEN SATURATION 98.6 % (94.0-98.0); BG OXYHEMOGLOBIN 97.4 % (94.0-98.0); BG PCO2 55.6 mmHg (35.0-48.0); BG PH 7.354 (7.350-7.450); BG PO2 109.1 mmHg (83.0-108.0); BG SAMPLE SITE LEFT RADIAL; BG TOTAL HEMOGLOBIN 9.5 g/dL (13.5-17.5); BG TOTAL RESPIRATORY RATE 23 b/min; BG VENT MODE MASK - BIPAP; BG VENT RATE 18.0 set
[2024-12-13] MEDS: NOREPINEPHRINE 8MG/250ML PMX 250 ML IV PRN (14:35)
[2024-12-13] MEDS: SODIUM CHLORIDE 0.9% 2,000 ML IV ONE (16:22)
[2024-12-13 16:56] LABS: BG DEOXYHEMOGLOBIN 3.7 % (0.0-5.0)
[2024-12-13] MEDS: DIGOXIN 500MCG/2ML AMP IV NR (17:07)
[2024-12-13] MEDS: VANCOMYCIN 1GM/200ML PMX (BAXTER) IV SCH (17:19)
[2024-12-13] MEDS: ENOXAPARIN 150MG/ML SYR SUBCUT SCH (18:48)
[2024-12-13] MEDS: MEROPENEM 1,000 MG in SODIUM CHLORIDE 0.9% 100 ML IV SCH (18:49)
[2024-12-13 20:19] LABS: PLATELET 208 x1000/uL (130-400); RED BLOOD CELL COUNT 4.39 mill/uL (4.7-6.1); RED CELL DISTRIBUTION WIDTH 22.4 % (11.6-14.6)
[2024-12-13 20:41] LABS: LACTATE DEHYDROGENASE 233 IU/L (120-246); UREA NITROGEN BLOOD 47 mg/dL (9-23)
[2024-12-13 20:43] LABS: ASPARTATE AMINOTRANSFERASE 36 IU/L (<34); BILIRUBIN TOTAL 0.9 mg/dL (0.1-1.0); PHOSPHORUS 4.7 mg/dL (2.5-4.9); PROTEIN TOTAL 6.5 g/dL (6.0-8.3)
[2024-12-13 20:44] LABS: CREATININE 3.4 mg/dL (0.6-1.3)
[2024-12-13 20:46] LABS: TROPONIN I HIGH SENSITIVITY 63 ng/L (3.0-53)
[2024-12-14] VITALS (85 sets, daily range): BP systolic 101–167; BP diastolic 47–120; PULSE 72–92; RESP 10–30; TEMP 36.7–37.4; O2SAT 87–100
[2024-12-14 05:49] LABS: HEMATOCRIT. 31.1 % (42.0-52.0); HEMOGLOBIN. 8.0 g/dL (14.0-18.0); MEAN PLATELET VOLUME 9.0 fl (7.4-10.4); PLATELET 221 x1000/uL (130-400); RED BLOOD CELL COUNT 4.24 mill/uL (4.7-6.1); RED CELL DISTRIBUTION WIDTH 22.2 % (11.6-14.6)
[2024-12-14 05:54] LABS: INR 1.2
[2024-12-14 06:10] LABS: CREATININE 4.1 mg/dL (0.6-1.3)
[2024-12-14 06:11] LABS: UREA NITROGEN BLOOD 56 mg/dL (9-23)
[2024-12-14 06:13] LABS: PHOSPHORUS 6.5 mg/dL (2.5-4.9)
[2024-12-14 09:00] LABS: BG BASE EXCESS 0.1 mmol/L (-2.0-3.0); BG CARBOXYHEMOGLOBIN 1.8 % (0.5-1.5); BG DEOXYHEMOGLOBIN 4.4 % (0.0-5.0); BG FRACTION INSPIRED OXYGEN 50; BG HCO3 ACT 29.1 mmol/L (21.0-28.0); BG METHEMOGLOBIN 0.2 % (0.5-1.5); BG OXYGEN SATURATION 95.5 % (94.0-98.0); BG OXYHEMOGLOBIN 93.6 % (94.0-98.0); BG PCO2 77.1 mmHg (35.0-48.0); BG PH 7.194 (7.350-7.450); BG PO2 83.2 mmHg (83.0-108.0); BG SAMPLE SITE RIGHT RADIAL; BG TOTAL HEMOGLOBIN 8.7 g/dL (13.5-17.5); BG VENT MODE MASK - BIPAP; BG VENT RATE 20.0 set
[2024-12-14] MEDS: VANCOMYCIN 1GM PMX (XELLIA) 200 ML IV SCH (10:48)
[2024-12-14 10:55] LABS: BAND% 13.0 % (1.0-6.0); EOSINOPHILS % MANUAL 2.0 % (0.0-5.0); LYMPHOCYTES % MANUAL 6.0 % (20.0-50.0); MONOCYTES % MANUAL 23.0 % (2.0-8.0); NEUTROPHILS % MANUAL 56.0 % (45.0-75.0)
[2024-12-14 10:57] LABS: PLATELET ESTIMATE NORMAL
[2024-12-14 12:26] LABS: BG BASE EXCESS -0.7 mmol/L (-2.0-3.0); BG CARBOXYHEMOGLOBIN 1.2 % (0.5-1.5); BG DEOXYHEMOGLOBIN 6.2 % (0.0-5.0); BG FRACTION INSPIRED OXYGEN 40; BG HCO3 ACT 27.1 mmol/L (21.0-28.0); BG METHEMOGLOBIN 0.2 % (0.5-1.5); BG OXYGEN SATURATION 93.7 % (94.0-98.0); BG OXYHEMOGLOBIN 92.4 % (94.0-98.0); BG PCO2 64.0 mmHg (35.0-48.0); BG PH 7.245 (7.350-7.450); BG PO2 73.6 mmHg (83.0-108.0); BG SAMPLE SITE RIGHT RADIAL; BG TOTAL HEMOGLOBIN 8.8 g/dL (13.5-17.5); BG VENT MODE MASK - BIPAP; BG VENT RATE 18.0 set
[2024-12-14] MEDS: IPRATROPIUM/ALBUTEROL 0.5-3(2.5)MG/3ML NEB HHN SCH (13:15)
[2024-12-15] VITALS (69 sets, daily range): BP systolic 128–220; BP diastolic 70–137; PULSE 79–121; RESP 13–31; TEMP 36.5–37.2; O2SAT 87–99
[2024-12-15 06:06] LABS: HEMATOCRIT. 29.9 % (42.0-52.0); HEMOGLOBIN. 7.9 g/dL (14.0-18.0); MEAN PLATELET VOLUME 9.0 fl (7.4-10.4); PLATELET 250 x1000/uL (130-400); RED BLOOD CELL COUNT 4.17 mill/uL (4.7-6.1); RED CELL DISTRIBUTION WIDTH 22.9 % (11.6-14.6)
[2024-12-15 06:23] LABS: UREA NITROGEN BLOOD 63 mg/dL (9-23)
[2024-12-15 06:25] LABS: ASPARTATE AMINOTRANSFERASE 44 IU/L (<34)
[2024-12-15 06:26] LABS: BILIRUBIN DIRECT 0.2 mg/dL (<=3.0); BILIRUBIN TOTAL 0.4 mg/dL (0.1-1.0); PHOSPHORUS 5.5 mg/dL (2.5-4.9); PROTEIN TOTAL 6.4 g/dL (6.0-8.3)
[2024-12-15 06:49] LABS: CREATININE 5.5 mg/dL (0.6-1.3)
[2024-12-15] MEDS: ENOXAPARIN 150MG/ML SYR SUBCUT SCH (08:54)
[2024-12-15] MEDS: DEXT 5%/0.9% NACL 1,000 ML IV SCH (08:57)
[2024-12-15 09:32] LABS: BG BASE EXCESS -2.1 mmol/L (-2.0-3.0); BG CARBOXYHEMOGLOBIN 1.0 % (0.5-1.5); BG DEOXYHEMOGLOBIN 2.7 % (0.0-5.0); BG FRACTION INSPIRED OXYGEN 50; BG HCO3 ACT 26.4 mmol/L (21.0-28.0); BG METHEMOGLOBIN 0.2 % (0.5-1.5); BG OXYGEN SATURATION 97.3 % (94.0-98.0); BG OXYHEMOGLOBIN 96.1 % (94.0-98.0); BG PCO2 66.5 mmHg (35.0-48.0); BG PH 7.216 (7.350-7.450); BG PO2 99.3 mmHg (83.0-108.0); BG SAMPLE SITE RIGHT RADIAL; BG TOTAL HEMOGLOBIN 10.0 g/dL (13.5-17.5); BG VENT MODE MASK - BIPAP; BG VENT RATE 18.0 set
[2024-12-15 10:57] LABS: BAND% 23.0 % (1.0-6.0); EOSINOPHILS % MANUAL 1.0 % (0.0-5.0); LYMPHOCYTES % MANUAL 9.0 % (20.0-50.0); MONOCYTES % MANUAL 8.0 % (2.0-8.0); NEUTROPHILS % MANUAL 59.0 % (45.0-75.0); PLATELET ESTIMATE NORMAL
[2024-12-15] MEDS ORDERED: LIDOCAINE HCL 1% 10 MG/ML 10ML VIAL ONE (13:27)
[2024-12-15] MEDS ORDERED: HEPARIN 1000 UNITS/ML 10ML ONE (13:28)
[2024-12-15 16:22] LABS: BG BASE EXCESS -2.9 mmol/L (-2.0-3.0); BG CARBOXYHEMOGLOBIN 1.1 % (0.5-1.5); BG DEOXYHEMOGLOBIN 5.3 % (0.0-5.0); BG FLOW(L/min) 32.00 L/min; BG FRACTION INSPIRED OXYGEN 42; BG HCO3 ACT 23.9 mmol/L (21.0-28.0); BG METHEMOGLOBIN 0.1 % (0.5-1.5); BG OXYGEN SATURATION 94.6 % (94.0-98.0); BG OXYHEMOGLOBIN 93.5 % (94.0-98.0); BG PCO2 51.7 mmHg (35.0-48.0); BG PH 7.283 (7.350-7.450); BG PO2 77.6 mmHg (83.0-108.0); BG SAMPLE SITE LEFT RADIAL; BG TOTAL HEMOGLOBIN 9.4 g/dL (13.5-17.5); BG VENT MODE HIGH FLOW
[2024-12-15] MEDS: LABETALOL 5MG/ML 4ML INJ IV SCH (21:08)
[2024-12-15] MEDS: AMIODARONE 150MG/100ML D5W 100 ML IV NR (22:33)
[2024-12-15] MEDS: AMIODARONE HCL 900 MG in DEXT 5% WATER 482 ML IV SCH (23:12)
[2024-12-16] VITALS (111 sets, daily range): BP systolic 130–201; BP diastolic 64–152; PULSE 78–151; RESP 15–35; TEMP 36.4–36.83628; O2SAT 88–100
[2024-12-16 06:46] LABS: BASOPHILS % 0.8 % (0.0-2.0); EOSINOPHILS % 4.8 % (0.0-5.0); HEMATOCRIT. 29.4 % (42.0-52.0); HEMOGLOBIN. 8.1 g/dL (14.0-18.0); LYMPHOCYTES % 11.1 % (20.0-50.0); MEAN PLATELET VOLUME 8.9 fl (7.4-10.4); MONOCYTES % 15.5 % (2.0-8.0); NEUTROPHILS % 67.8 % (40.0-76.0); PLATELET 272 x1000/uL (130-400); RED BLOOD CELL COUNT 4.27 mill/uL (4.7-6.1); RED CELL DISTRIBUTION WIDTH 22.6 % (11.6-14.6)
[2024-12-16 07:02] LABS: UREA NITROGEN BLOOD 49 mg/dL (9-23)
[2024-12-16 07:04] LABS: PHOSPHORUS 3.1 mg/dL (2.5-4.9)
[2024-12-16 07:17] LABS: CREATININE 5.8 mg/dL (0.6-1.3)
[2024-12-16 07:53] LABS: HEPATITIS A AB IGM NEGATIVE (Negative); HEPATITIS B CORE AB IGM NEGATIVE (Negative)
[2024-12-16 07:54] LABS: HEPATITIS C AB NON REACTIVE (Neg) (Negative)
[2024-12-16] MEDS: CLONIDINE 0.2MG TABLET PO SCH (08:11)
[2024-12-16] MEDS: MEROPENEM 1G/100ML IV SCH (08:13)
[2024-12-16 08:41] LABS: BG BASE EXCESS 1.7 mmol/L (-2.0-3.0); BG CARBOXYHEMOGLOBIN 1.0 % (0.5-1.5); BG DEOXYHEMOGLOBIN 3.3 % (0.0-5.0); BG FLOW(L/min) 32.00 L/min; BG FRACTION INSPIRED OXYGEN 42; BG HCO3 ACT 26.8 mmol/L (21.0-28.0); BG METHEMOGLOBIN 0.2 % (0.5-1.5); BG OXYGEN SATURATION 96.7 % (94.0-98.0); BG OXYHEMOGLOBIN 95.5 % (94.0-98.0); BG PCO2 44.1 mmHg (35.0-48.0); BG PH 7.401 (7.350-7.450); BG PO2 86.0 mmHg (83.0-108.0); BG SAMPLE SITE RIGHT RADIAL; BG TOTAL HEMOGLOBIN 9.2 g/dL (13.5-17.5); BG VENT MODE HIGH FLOW
[2024-12-16] MEDS ORDERED: MEROPENEM 1,000 MG in SODIUM CHLORIDE 0.9% 100 ML IV SCH (09:00)
[2024-12-16] MEDS ORDERED: LIDOCAINE HCL 1% 10 MG/ML 10ML VIAL ONE (09:31)
[2024-12-16] MEDS: NIFEDIPINE XL 60MG TAB PO SCH (10:39)
[2024-12-16] MEDS: HYDRALAZINE 20MG/ML VIAL IV SCH (11:43)
[2024-12-16] MEDS: DILTIAZEM HCL 125 MG in DEXT 5% WATER 100 ML IV PRN (14:16)
[2024-12-17] VITALS (83 sets, daily range): BP systolic 108–171; BP diastolic 58–93; PULSE 71–94; RESP 12–35; TEMP 36.7–37.1; O2SAT 89–100
[2024-12-17 06:50] LABS: BASOPHILS % 1.4 % (0.0-2.0); EOSINOPHILS % 5.6 % (0.0-5.0); HEMATOCRIT. 26.9 % (42.0-52.0); HEMOGLOBIN. 7.5 g/dL (14.0-18.0); LYMPHOCYTES % 14.2 % (20.0-50.0); MEAN PLATELET VOLUME 8.9 fl (7.4-10.4); MONOCYTES % 14.7 % (2.0-8.0); NEUTROPHILS % 64.1 % (40.0-76.0); PLATELET 289 x1000/uL (130-400); RED BLOOD CELL COUNT 3.95 mill/uL (4.7-6.1); RED CELL DISTRIBUTION WIDTH 21.9 % (11.6-14.6)
[2024-12-17 07:14] LABS: UREA NITROGEN BLOOD 38 mg/dL (9-23)
[2024-12-17 07:16] LABS: PHOSPHORUS 3.0 mg/dL (2.5-4.9)
[2024-12-17] MEDS: FAMOTIDINE 20MG/2ML VIAL IV SCH (08:07)
[2024-12-17 08:19] LABS: BG BASE EXCESS 0.8 mmol/L (-2.0-3.0); BG CARBOXYHEMOGLOBIN 0.9 % (0.5-1.5); BG DEOXYHEMOGLOBIN 3.9 % (0.0-5.0); BG FLOW(L/min) 15.00 L/min; BG FRACTION INSPIRED OXYGEN 40; BG HCO3 ACT 25.9 mmol/L (21.0-28.0); BG METHEMOGLOBIN 0.3 % (0.5-1.5); BG OXYGEN SATURATION 96.1 % (94.0-98.0); BG OXYHEMOGLOBIN 94.9 % (94.0-98.0); BG PCO2 43.7 mmHg (35.0-48.0); BG PH 7.391 (7.350-7.450); BG PO2 83.1 mmHg (83.0-108.0); BG SAMPLE SITE RIGHT RADIAL; BG TOTAL HEMOGLOBIN 8.5 g/dL (13.5-17.5); BG VENT MODE HIGH FLOW
[2024-12-17 08:35] LABS: CREATININE 5.0 mg/dL (0.6-1.3)
[2024-12-17] MEDS: CLONIDINE 0.3MG TABLET PO SCH (13:18)
[2024-12-17] MEDS: NIFEDIPINE XL 60MG TAB PO SCH (20:19)
[2024-12-17] MEDS: METOPROLOL TARTRATE 25MG TABLET PO SCH (20:20)
[2024-12-17] MEDS: HYDRALAZINE HCL 50MG TABLET PO SCH (21:48)
[2024-12-18] VITALS (88 sets, daily range): BP systolic 103–182; BP diastolic 64–104; PULSE 78–106; RESP 15–36; TEMP 36.55848–37.6; O2SAT 82–100
[2024-12-18 05:47] LABS: HEMATOCRIT. 28.1 % (42.0-52.0); HEMOGLOBIN. 7.8 g/dL (14.0-18.0); MEAN PLATELET VOLUME 8.9 fl (7.4-10.4); PLATELET 346 x1000/uL (130-400); RED BLOOD CELL COUNT 4.19 mill/uL (4.7-6.1); RED CELL DISTRIBUTION WIDTH 21.7 % (11.6-14.6)
[2024-12-18 06:02] LABS: CREATININE 3.6 mg/dL (0.6-1.3)
[2024-12-18 06:03] LABS: UREA NITROGEN BLOOD 27 mg/dL (9-23)
[2024-12-18 06:06] LABS: PHOSPHORUS 2.6 mg/dL (2.5-4.9)
[2024-12-18 11:44] LABS: BAND% 1.0 % (1.0-6.0); EOSINOPHILS % MANUAL 6.0 % (0.0-5.0); LYMPHOCYTES % MANUAL 18.0 % (20.0-50.0); MONOCYTES % MANUAL 8.0 % (2.0-8.0); NEUTROPHILS % MANUAL 67.0 % (45.0-75.0)
[2024-12-18 11:45] LABS: PLATELET ESTIMATE NORMAL
[2024-12-18] MEDS: ONDANSETRON HCL 4MG TABLET PO PRN (20:09)
[2024-12-18] MEDS: ONDANSETRON HCL 4MG/2ML INJ IV PRN (22:44)
[2024-12-19] VITALS (62 sets, daily range): BP systolic 106–182; BP diastolic 60–88; PULSE 68–112; RESP 15–38; TEMP 36.6–37.5; O2SAT 80–100
[2024-12-19] MEDS: CLONIDINE 0.3MG TABLET PO NR (00:59)
[2024-12-19 06:02] LABS: BASOPHILS % 0.9 % (0.0-2.0); EOSINOPHILS % 2.3 % (0.0-5.0); HEMATOCRIT. 29.7 % (42.0-52.0); HEMOGLOBIN. 8.2 g/dL (14.0-18.0); LYMPHOCYTES % 9.7 % (20.0-50.0); MEAN PLATELET VOLUME 8.3 fl (7.4-10.4); MONOCYTES % 11.3 % (2.0-8.0); NEUTROPHILS % 75.8 % (40.0-76.0); PLATELET 436 x1000/uL (130-400); RED BLOOD CELL COUNT 4.32 mill/uL (4.7-6.1); RED CELL DISTRIBUTION WIDTH 21.9 % (11.6-14.6)
[2024-12-19 06:14] LABS: CREATININE 4.6 mg/dL (0.6-1.3)
[2024-12-19 06:15] LABS: UREA NITROGEN BLOOD 37 mg/dL (9-23)
[2024-12-19 06:17] LABS: PHOSPHORUS 6.0 mg/dL (2.5-4.9)
[2024-12-19] MEDS: CEFTRIAXONE 1GM/50ML 50 ML IV SCH (08:09)
[2024-12-19 08:52] LABS: BG BASE EXCESS 8.4 mmol/L (-2.0-3.0); BG CARBOXYHEMOGLOBIN 1.3 % (0.5-1.5); BG DEOXYHEMOGLOBIN 17.6 % (0.0-5.0); BG FRACTION INSPIRED OXYGEN 21; BG HCO3 ACT 36.0 mmol/L (21.0-28.0); BG METHEMOGLOBIN 0.3 % (0.5-1.5); BG OXYGEN SATURATION 82.1 % (94.0-98.0); BG OXYHEMOGLOBIN 80.8 % (94.0-98.0); BG PCO2 71.3 mmHg (35.0-48.0); BG PH 7.321 (7.350-7.450); BG PO2 50.2 mmHg (83.0-108.0); BG SAMPLE SITE RIGHT RADIAL; BG TOTAL HEMOGLOBIN 8.9 g/dL (13.5-17.5); BG VENT MODE ROOM AIR
[2024-12-20] VITALS (15 sets, daily range): BP systolic 113–184; BP diastolic 59–95; PULSE 71–96; RESP 16–20; TEMP 36.1–37; O2SAT 93–98
[2024-12-20 06:30] LABS: UREA NITROGEN BLOOD 51 mg/dL (9-23)
[2024-12-20 06:32] LABS: PHOSPHORUS 7.0 mg/dL (2.5-4.9)
[2024-12-20 06:40] LABS: CREATININE 5.5 mg/dL (0.6-1.3)
[2024-12-20 06:52] LABS: BASOPHILS % 1.4 % (0.0-2.0); EOSINOPHILS % 4.0 % (0.0-5.0); HEMATOCRIT. 26.0 % (42.0-52.0); HEMOGLOBIN. 7.1 g/dL (14.0-18.0); LYMPHOCYTES % 13.3 % (20.0-50.0); MEAN PLATELET VOLUME 8.1 fl (7.4-10.4); MONOCYTES % 13.8 % (2.0-8.0); NEUTROPHILS % 67.5 % (40.0-76.0); PLATELET 424 x1000/uL (130-400); RED BLOOD CELL COUNT 3.68 mill/uL (4.7-6.1); RED CELL DISTRIBUTION WIDTH 22.2 % (11.6-14.6)
[2024-12-20 13:19] LABS: BG BASE EXCESS 5.9 mmol/L (-2.0-3.0); BG CARBOXYHEMOGLOBIN 2.5 % (0.5-1.5); BG DEOXYHEMOGLOBIN 7.1 % (0.0-5.0); BG FRACTION INSPIRED OXYGEN 28; BG HCO3 ACT 32.8 mmol/L (21.0-28.0); BG METHEMOGLOBIN 0.4 % (0.5-1.5); BG OXYGEN SATURATION 92.7 % (94.0-98.0); BG OXYHEMOGLOBIN 90.0 % (94.0-98.0); BG PCO2 64.0 mmHg (35.0-48.0); BG PH 7.328 (7.350-7.450); BG PO2 68.8 mmHg (83.0-108.0); BG SAMPLE SITE LEFT RADIAL; BG TOTAL HEMOGLOBIN 8.0 g/dL (13.5-17.5); BG VENT MODE NASAL CANNULA
[2024-12-20] MEDS ORDERED: SODIUM CHLORIDE 0.9% 500 ML IV NR (17:40)
[2024-12-21 00:10] VITALS: BP 119/68; PULSE 88; RESP 20; TEMP 37; O2SAT 95
[2024-12-21 03:58] VITALS: BP 150/92; PULSE 93; RESP 18; TEMP 37.1; O2SAT 95
[2024-12-21 07:32] LABS: BASOPHILS % 0.8 % (0.0-2.0); EOSINOPHILS % 4.1 % (0.0-5.0); HEMATOCRIT. 26.4 % (42.0-52.0); HEMOGLOBIN. 7.3 g/dL (14.0-18.0); LYMPHOCYTES % 13.8 % (20.0-50.0); MEAN PLATELET VOLUME 8.3 fl (7.4-10.4); MONOCYTES % 12.2 % (2.0-8.0); NEUTROPHILS % 69.1 % (40.0-76.0); PLATELET 472 x1000/uL (130-400); RED BLOOD CELL COUNT 3.85 mill/uL (4.7-6.1); RED CELL DISTRIBUTION WIDTH 22.0 % (11.6-14.6)
[2024-12-21 08:00] VITALS: BP 159/81; PULSE 92; RESP 19; TEMP 37.2; O2SAT 93
[2024-12-21 09:24] LABS: CREATININE 4.3 mg/dL (0.6-1.3)
[2024-12-21 09:25] LABS: UREA NITROGEN BLOOD 48 mg/dL (9-23)
[2024-12-21 09:27] LABS: PHOSPHORUS 4.3 mg/dL (2.5-4.9)
[2024-12-21 12:00] VITALS: BP 157/78; PULSE 99; RESP 19; TEMP 37.6; O2SAT 93
[2024-12-21 16:00] VITALS: BP 119/70; PULSE 81; RESP 20; TEMP 36.3; O2SAT 95
[2024-12-21] MEDS: NIFEDIPINE XL 30MG TAB PO SCH (17:12)
[2024-12-21 20:00] VITALS: BP 135/76; PULSE 77; RESP 18; TEMP 36.7; O2SAT 97
[2024-12-22] VITALS (10 sets, daily range): BP systolic 114–170; BP diastolic 59–87; PULSE 67–98; RESP 18–20; TEMP 36.1–37; O2SAT 96–100
[2024-12-22 07:46] LABS: BASOPHILS % 1.3 % (0.0-2.0); EOSINOPHILS % 4.6 % (0.0-5.0); HEMATOCRIT. 26.2 % (42.0-52.0); HEMOGLOBIN. 7.2 g/dL (14.0-18.0); LYMPHOCYTES % 13.8 % (20.0-50.0); MEAN PLATELET VOLUME 8.1 fl (7.4-10.4); MONOCYTES % 10.2 % (2.0-8.0); NEUTROPHILS % 70.1 % (40.0-76.0); PLATELET 481 x1000/uL (130-400); RED BLOOD CELL COUNT 3.81 mill/uL (4.7-6.1); RED CELL DISTRIBUTION WIDTH 21.9 % (11.6-14.6)
[2024-12-22 08:13] LABS: CREATININE 3.6 mg/dL (0.6-1.3)
[2024-12-22 08:14] LABS: UREA NITROGEN BLOOD 54 mg/dL (9-23)
[2024-12-22 08:16] LABS: PHOSPHORUS 4.7 mg/dL (2.5-4.9)
[2024-12-23] VITALS (8 sets, daily range): BP systolic 129–152; BP diastolic 64–84; PULSE 65–90; RESP 18–20; TEMP 36.4–38.2; O2SAT 95–98
[2024-12-23 08:27] LABS: BASOPHILS % 1.6 % (0.0-2.0); EOSINOPHILS % 5.2 % (0.0-5.0); HEMATOCRIT. 25.4 % (42.0-52.0); HEMOGLOBIN. 7.1 g/dL (14.0-18.0); LYMPHOCYTES % 15.3 % (20.0-50.0); MEAN PLATELET VOLUME 7.7 fl (7.4-10.4); MONOCYTES % 11.2 % (2.0-8.0); NEUTROPHILS % 66.7 % (40.0-76.0); PLATELET 448 x1000/uL (130-400); RED BLOOD CELL COUNT 3.69 mill/uL (4.7-6.1); RED CELL DISTRIBUTION WIDTH 22.2 % (11.6-14.6)
[2024-12-23 08:36] LABS: CREATININE 3.3 mg/dL (0.6-1.3); UREA NITROGEN BLOOD 47 mg/dL (9-23)
[2024-12-23 08:38] LABS: PHOSPHORUS 4.6 mg/dL (2.5-4.9)
[2024-12-23 18:36] LABS: BG BASE EXCESS 3.3 mmol/L (-2.0-3.0); BG CARBOXYHEMOGLOBIN 1.7 % (0.5-1.5); BG DEOXYHEMOGLOBIN 8.0 % (0.0-5.0); BG FRACTION INSPIRED OXYGEN 21; BG HCO3 ACT 27.7 mmol/L (21.0-28.0); BG METHEMOGLOBIN 0.1 % (0.5-1.5); BG OXYGEN SATURATION 91.9 % (94.0-98.0); BG OXYHEMOGLOBIN 90.2 % (94.0-98.0); BG PCO2 41.4 mmHg (35.0-48.0); BG PH 7.443 (7.350-7.450); BG PO2 61.0 mmHg (83.0-108.0); BG SAMPLE SITE LEFT RADIAL; BG TOTAL HEMOGLOBIN 8.8 g/dL (13.5-17.5); BG VENT MODE ROOM AIR
[2024-12-23] MEDS ORDERED: PIPERACILLIN/TAZO 3.375G/50ML 50 ML IV SCH (21:00)
[2024-12-24] VITALS: BP 123/66; PULSE 84; RESP 19; TEMP 36.6; O2SAT 98
[2024-12-24 04:00] VITALS: BP 163/83; PULSE 100; RESP 19; TEMP 36.1; O2SAT 97
[2024-12-24 06:05] LABS: CLARITY URINE CLOUDY (CLEAR); COLOR URINE YELLOW (YELLOW); GLUCOSE URINE NEGATIVE (NEGATIVE); KETONES URINE NEGATIVE (NEGATIVE); LEUKOCYTE ESTERASE URINE TRACE (NEGATIVE); NITRITE URINE NEGATIVE (NEGATIVE); OCCULT BLOOD URINE NEGATIVE (NEGATIVE); PH URINE 5.0 (4.5-8.0); PROTEIN URINE 2+ (NEGATIVE); SPECIFIC GRAVITY URINE 1.010 (1.005-1.030); UROBILINOGEN URINE 0.2 E.U./dL (0.2-1.0)
[2024-12-24 06:08] LABS: AMORPHOUS SEDIMENT URINE 1+ /lpf; BACTERIA URINE TRACE; RBC URINE NONE SEEN /hpf (0-2); SQUAMOUS EPITHELIAL CELL URINE FEW /lpf (RARE/1+); WBC URINE 0-2 /hpf (0-2)
[2024-12-24 08:00] VITALS: BP 136/76; PULSE 95; RESP 17; TEMP 36.6; O2SAT 95
[2024-12-24 12:00] VITALS: BP 155/82; PULSE 92; RESP 20; TEMP 37; O2SAT 95
[2024-12-24 15:51] LABS: BASOPHILS % 1.6 % (0.0-2.0); EOSINOPHILS % 5.0 % (0.0-5.0); HEMATOCRIT. 24.8 % (42.0-52.0); HEMOGLOBIN. 7.1 g/dL (14.0-18.0); LYMPHOCYTES % 17.9 % (20.0-50.0); MEAN PLATELET VOLUME 7.5 fl (7.4-10.4); MONOCYTES % 12.3 % (2.0-8.0); NEUTROPHILS % 63.2 % (40.0-76.0); PLATELET 476 x1000/uL (130-400); RED BLOOD CELL COUNT 3.62 mill/uL (4.7-6.1); RED CELL DISTRIBUTION WIDTH 22.5 % (11.6-14.6)
[2024-12-24 16:05] LABS: CREATININE 2.6 mg/dL (0.6-1.3); UREA NITROGEN BLOOD 37 mg/dL (9-23)
[2024-12-24 16:07] LABS: PHOSPHORUS 2.9 mg/dL (2.5-4.9)
[2024-12-24 16:30] VITALS: BP 147/78; PULSE 89; RESP 18; TEMP 36.7; O2SAT 95
[2024-12-24 20:00] VITALS: BP 160/88; PULSE 101; RESP 19; TEMP 36.8; O2SAT 97
[2024-12-24] MEDS: MAGNESIUM 2 G PREMIX 50 ML IV SCH (21:39)
[2024-12-25] VITALS: BP 128/86; PULSE 91; RESP 18; TEMP 36.3; O2SAT 97
[2024-12-25 04:00] VITALS: BP 146/81; PULSE 85; RESP 18; TEMP 36.4; O2SAT 98
[2024-12-25 08:00] VITALS: BP 146/79; PULSE 92; RESP 18; TEMP 36.6; O2SAT 97
[2024-12-25 10:02] LABS: BASOPHILS % 1.8 % (0.0-2.0); EOSINOPHILS % 5.9 % (0.0-5.0); HEMATOCRIT. 25.3 % (42.0-52.0); HEMOGLOBIN. 7.2 g/dL (14.0-18.0); LYMPHOCYTES % 19.3 % (20.0-50.0); MEAN PLATELET VOLUME 7.7 fl (7.4-10.4); MONOCYTES % 13.1 % (2.0-8.0); NEUTROPHILS % 59.9 % (40.0-76.0); PLATELET 454 x1000/uL (130-400); RED BLOOD CELL COUNT 3.66 mill/uL (4.7-6.1); RED CELL DISTRIBUTION WIDTH 23.0 % (11.6-14.6)
[2024-12-25 11:45] LABS: CREATININE 2.5 mg/dL (0.6-1.3); UREA NITROGEN BLOOD 42 mg/dL (9-23)
[2024-12-25 11:47] LABS: PHOSPHORUS 3.3 mg/dL (2.5-4.9)
[2024-12-25 12:00] VITALS: BP 140/74; PULSE 78; RESP 18; TEMP 36.6; O2SAT 96
[2024-12-25 16:00] VITALS: BP 146/84; PULSE 78; RESP 18; TEMP 36.5; O2SAT 96
[2024-12-25 20:00] VITALS: BP 126/70; PULSE 83; RESP 18; TEMP 36.2; O2SAT 97
[2024-12-26] VITALS: BP 140/83; PULSE 72; RESP 18; TEMP 36.2; O2SAT 97
[2024-12-26 04:00] VITALS: BP 150/81; PULSE 84; RESP 18; TEMP 36.3; O2SAT 96
[2024-12-26 08:00] VITALS: BP 145/77; PULSE 82; RESP 20; TEMP 37; O2SAT 95
[2024-12-26 10:45] LABS: BASOPHILS % 2.3 % (0.0-2.0); EOSINOPHILS % 6.7 % (0.0-5.0); LYMPHOCYTES % 19.5 % (20.0-50.0); MEAN PLATELET VOLUME 8.7 fl (7.4-10.4); MONOCYTES % 12.4 % (2.0-8.0); NEUTROPHILS % 59.1 % (40.0-76.0); PLATELET 408 x1000/uL (130-400); RED BLOOD CELL COUNT 3.55 mill/uL (4.7-6.1); RED CELL DISTRIBUTION WIDTH 23.3 % (11.6-14.6)
[2024-12-26 10:56] LABS: CREATININE 2.2 mg/dL (0.6-1.3)
[2024-12-26 10:57] LABS: UREA NITROGEN BLOOD 32 mg/dL (9-23)
[2024-12-26 10:59] LABS: PHOSPHORUS 2.5 mg/dL (2.5-4.9)
[2024-12-26 11:02] LABS: ADD RBC MORPHOLOGY YES; HEMATOCRIT. 24.6 % (42.0-52.0); HEMOGLOBIN. 6.9 g/dL (14.0-18.0)
[2024-12-26 12:00] VITALS: BP 148/81; PULSE 73; RESP 20; TEMP 37.1; O2SAT 95
[2024-12-26 14:15] LABS: PLATELET ESTIMATE SLIGHTLY INCREASED
[2024-12-26] MEDS: POTASSIUM PHOSPHATE 15 MMOL in DEXT 5% WATER 245 ML IV SCH (14:19)
[2024-12-26 16:00] VITALS: BP 148/79; PULSE 73; RESP 20; TEMP 36.7; O2SAT 94
[2024-12-26 20:00] VITALS: BP 135/78; PULSE 84; RESP 21; TEMP 36.2; O2SAT 96
[2024-12-27] VITALS (11 sets, daily range): BP systolic 129–162; BP diastolic 66–91; PULSE 67–88; RESP 18–20; TEMP 36.2–37; O2SAT 96–98
[2024-12-27 09:47] LABS: CREATININE 1.9 mg/dL (0.6-1.3)
[2024-12-27 09:48] LABS: UREA NITROGEN BLOOD 29 mg/dL (9-23)
[2024-12-27 09:50] LABS: PHOSPHORUS 3.0 mg/dL (2.5-4.9)
[2024-12-27 11:19] LABS: BASOPHILS % 1.7 % (0.0-2.0); EOSINOPHILS % 6.8 % (0.0-5.0); HEMATOCRIT. 28.8 % (42.0-52.0); HEMOGLOBIN. 8.2 g/dL (14.0-18.0); LYMPHOCYTES % 15.7 % (20.0-50.0); MEAN PLATELET VOLUME 7.5 fl (7.4-10.4); MONOCYTES % 12.4 % (2.0-8.0); NEUTROPHILS % 63.4 % (40.0-76.0); PLATELET 381 x1000/uL (130-400); RED BLOOD CELL COUNT 4.07 mill/uL (4.7-6.1); RED CELL DISTRIBUTION WIDTH 23.5 % (11.6-14.6)
[2024-12-27] MEDS ORDERED: HYDR50TA39 PO (15:49)
[2024-12-27] MEDS ORDERED: NIFE-33 PO (15:49)
[2024-12-27] MEDS ORDERED: METO25TA6 PO (15:49)
[2024-12-27] MEDS ORDERED: LIP40 PO (15:49)
[2024-12-27] MEDS ORDERED: FERR-63 PO (15:49)
[2024-12-27] MEDS ORDERED: FAMO20TA8 PO (15:49)
[2024-12-27] MEDS: MAGNESIUM 2 G PREMIX 50 ML IV NR (17:14)
[2024-12-27] MEDS: FAMOTIDINE 20MG TABLET PO SCH (21:11)
[2024-12-28] VITALS: BP 154/93; PULSE 80; RESP 18; TEMP 36.3; O2SAT 96
[2024-12-28 04:00] VITALS: BP 151/87; PULSE 73; RESP 19; TEMP 36.3; O2SAT 97
[2024-12-28 08:00] VITALS: BP 147/90; PULSE 83; RESP 17; TEMP 35.9; O2SAT 97
[2024-12-28 09:19] LABS: BASOPHILS % 2.4 % (0.0-2.0); EOSINOPHILS % 7.7 % (0.0-5.0); HEMATOCRIT. 28.9 % (42.0-52.0); HEMOGLOBIN. 8.3 g/dL (14.0-18.0); LYMPHOCYTES % 19.1 % (20.0-50.0); MEAN PLATELET VOLUME 8.6 fl (7.4-10.4); MONOCYTES % 12.0 % (2.0-8.0); NEUTROPHILS % 58.8 % (40.0-76.0); PLATELET 361 x1000/uL (130-400); RED BLOOD CELL COUNT 4.11 mill/uL (4.7-6.1); RED CELL DISTRIBUTION WIDTH 23.3 % (11.6-14.6)
[2024-12-28 09:43] LABS: CREATININE 2.0 mg/dL (0.6-1.3)
[2024-12-28 09:44] LABS: UREA NITROGEN BLOOD 22 mg/dL (9-23)
[2024-12-28 09:46] LABS: PHOSPHORUS 3.3 mg/dL (2.5-4.9)
[2024-12-28 10:42] LABS: ADD RBC MORPHOLOGY NO
[2024-12-28 12:00] VITALS: BP 138/66; PULSE 72; RESP 15; TEMP 36; O2SAT 98
[2024-12-28 14:33] VITALS: BP 138/66; PULSE 72; RESP 18; TEMP 96.3
[2024-12-28 16:00] VITALS: BP 150/82; PULSE 78; RESP 18; TEMP 36.2; O2SAT 95
== END 2024-12-28 17:41 | disposition home or self-care (01) | DRG 870 ==
LOC: ER 17:33 → MICUSO 22:55 → EDBEDREQ 22:59 → EDBEDREQSVC 22:59 → EDBEDREQTM 22:59 → ENRESERV 12-02 00:02 → 3WST 12-07 22:28 → MICUSO 12-13 13:48 → CVICU 12-13 14:00 → 8WST 12-19 14:42
PROVIDERS: ADMIT Internal Medicine; ATTEND Internal Medicine
PROC: 5A1955Z Respiratory Ventilation, Greater than 96 Consecutive Hours (ICD-10-PCS; principal; 2024-12-01)
PROC: 0BH17EZ Insertion of Endotracheal Airway into Trachea, Via Natural or Artificial Opening (ICD-10-PCS; 2024-12-01)
PROC: 5A09357 Assistance with Respiratory Ventilation, Less than 24 Consecutive Hours, Continuous Positive Airway Pressure (ICD-10-PCS; 2024-12-06)
PROC: 4A023N7 Measurement of Cardiac Sampling and Pressure, Left Heart, Percutaneous Approach (ICD-10-PCS; 2024-12-06)
PROC: B211YZZ Fluoroscopy of Multiple Coronary Arteries using Other Contrast (ICD-10-PCS; 2024-12-06)
PROC: B215YZZ Fluoroscopy of Left Heart using Other Contrast (ICD-10-PCS; 2024-12-06)
PROC: 5A09357 Assistance with Respiratory Ventilation, Less than 24 Consecutive Hours, Continuous Positive Airway Pressure (ICD-10-PCS; 2024-12-08)
PROC: 5A09357 Assistance with Respiratory Ventilation, Less than 24 Consecutive Hours, Continuous Positive Airway Pressure (ICD-10-PCS; 2024-12-09)
PROC: 5A09357 Assistance with Respiratory Ventilation, Less than 24 Consecutive Hours, Continuous Positive Airway Pressure (ICD-10-PCS; 2024-12-10)
PROC: 5A09357 Assistance with Respiratory Ventilation, Less than 24 Consecutive Hours, Continuous Positive Airway Pressure (ICD-10-PCS; 2024-12-12)
PROC: 5A0935A Assistance with Respiratory Ventilation, Less than 24 Consecutive Hours, High Flow/Velocity Cannula (ICD-10-PCS; 2024-12-15)
PROC: 02HV33Z Insertion of Infusion Device into Superior Vena Cava, Percutaneous Approach (ICD-10-PCS; 2024-12-15)
PROC: B548ZZA Ultrasonography of Superior Vena Cava, Guidance (ICD-10-PCS; 2024-12-15)
PROC: 5A0935A Assistance with Respiratory Ventilation, Less than 24 Consecutive Hours, High Flow/Velocity Cannula (ICD-10-PCS; 2024-12-16)
PROC: 05HN33Z Insertion of Infusion Device into Left Internal Jugular Vein, Percutaneous Approach (ICD-10-PCS; 2024-12-16)
PROC: B544ZZA Ultrasonography of Left Jugular Veins, Guidance (ICD-10-PCS; 2024-12-16)
PROC: 5A09357 Assistance with Respiratory Ventilation, Less than 24 Consecutive Hours, Continuous Positive Airway Pressure (ICD-10-PCS; 2024-12-17)
PROC: 5A0935A Assistance with Respiratory Ventilation, Less than 24 Consecutive Hours, High Flow/Velocity Cannula (ICD-10-PCS; 2024-12-17)
PROC: 30233N1 Transfusion of Nonautologous Red Blood Cells into Peripheral Vein, Percutaneous Approach (ICD-10-PCS; 2024-12-27)
DX: A41.59 Other Gram-negative sepsis (principal); G92.8 Other toxic encephalopathy; J18.9 Pneumonia, unspecified organism; J96.01 Acute respiratory failure with hypoxia; J96.02 Acute respiratory failure with hypercapnia; I21.4 Non-ST elevation (NSTEMI) myocardial infarction; J69.0 Pneumonitis due to inhalation of food and vomit; R65.21 Severe sepsis with septic shock; I50.43 Acute on chronic combined systolic (congestive) and diastolic (congestive) heart failure; N17.0 Acute kidney failure with tubular necrosis; I13.0 Hypertensive heart and chronic kidney disease with heart failure and stage 1 through stage 4 chronic kidney disease, or unspecified chronic kidney disease; Z68.41 Body mass index [BMI] 40.0-44.9, adult; E87.4 Mixed disorder of acid-base balance; E87.29 Other acidosis; I16.9 Hypertensive crisis, unspecified; Z20.822 Contact with and (suspected) exposure to COVID-19; E83.42 Hypomagnesemia; D64.9 Anemia, unspecified; F17.210 Nicotine dependence, cigarettes, uncomplicated; N28.1 Cyst of kidney, acquired; N18.9 Chronic kidney disease, unspecified; I48.0 Paroxysmal atrial fibrillation; G47.33 Obstructive sleep apnea (adult) (pediatric); B96.1 Klebsiella pneumoniae [K. pneumoniae] as the cause of diseases classified elsewhere; E11.22 Type 2 diabetes mellitus with diabetic chronic kidney disease; E66.01 Morbid (severe) obesity due to excess calories; E78.5 Hyperlipidemia, unspecified; K57.30 Diverticulosis of large intestine without perforation or abscess without bleeding; K76.89 Other specified diseases of liver; E11.65 Type 2 diabetes mellitus with hyperglycemia; R74.01 Elevation of levels of liver transaminase levels; E83.39 Other disorders of phosphorus metabolism; Z79.899 Other long term (current) drug therapy; Z71.6 Tobacco abuse counseling; Z79.01 Long term (current) use of anticoagulants; Z82.49 Family history of ischemic heart disease and other diseases of the circulatory system
CPT/HCPCS: 31720; 36415; 36556; 36573; 36600; 71045; 71046; 71250; 71275; 74177; 76604; 77001; 80048; 80053; 80061; 80076; 80202; 80305; 80320; 81003; 82105; 82140; 82270; 82375; 82550; 82553; 82570; 82607; 82728; 82746; 82803; 82805; 82962; 83036; 83540; 83550; 83605; 83615; 83735; 83880; 84100; 84145; 84300; 84439; 84443; 84478; 84484; 85014; 85018; 85025; 85027; 85044; 85379; 86705; 86706; 86709; 86850; 86900; 86920; 87070; 87077; 87186; 87207; 87340; 87426; 90935; 92610; 93005; 93306; 93458; 93970; 94002; 94003; 94070; 94640; 94660; 94664; 94760; 96374; 97116; 97162; 97164; 97530; 98960; 99291; A4606; C1725; C1752; C1769; C1887; C1893; J0282; J0330; J0360; J0456; J0692; J0696; J1160; J1200; J1308; J1644; J1650; J1815; J1938; J2003; J2185; J2250; J2270; J2405; J2470; J2543; J2704; J3010; J3373; J3475; J3490; J7030; J7042; J7050; J7060; J7626; P9016; Q0162; Q9967; G0480